=== PATIENT | male | born 1945 | race Caucasian/White ===

== ENCOUNTER 2017-08-28 10:18 | Inpatient (IN) ==
[2017-08-28 11:36] LABS: Basophils # 0.1 K/mcL (0.0-0.2); Basophils % 0.9 %; Eosinophils # 0.1 K/mcL (0.0-0.6); Eosinophils % 1.2 %; Hematocrit 46.6 % (37.5-50.1); Hemoglobin 15.9 g/dL (12.9-16.9); Immature Granulocytes % 0.7 % (0-4); Lymphocytes % 10.1 %; Mean Corpuscular HGB Conc 34.1 g/dL (31.6-35.5); Mean Corpuscular Hemoglobin 31.9 pg (28.0-33.3); Mean Corpuscular Volume 93.4 fL (83.0-100.0); Mean Platelet Volume 8.7 fL (9.4-12.4); Monocytes # 0.9 K/mcL (0.0-1.3); Neutrophils # 7.6 K/mcL (1.6-8.9); Platelet Count 278 K/mcL (140-400); Red Blood Count 4.99 M/mcL (4.19-5.50); Red Cell Distribution Width 13.2 % (11.5-14.5); Segmented Neutrophils % 78.1 %
[2017-08-28 11:58] LABS: Platelet Estimate Normal (Normal)
[2017-08-28 11:59] LABS: BUN/Creatinine Ratio 9 (6-26); Blood Urea Nitrogen 12 mg/dL (8-23); Calcium 9.7 mg/dL (8.6-10.3); Carbon Dioxide 26 mEq/L (23-29); Chloride 101 mEq/L (98-107); Glucose 170 mg/dL (70-105); Osmolality,Calculated 288 (280-300); Potassium 4.3 mEq/L (3.5-5.1); Sodium 137 mEq/L (136-145); eGFR For African Americans > 60 (> 60); eGFR For Non-African Americans 56 (> 60)
[2017-08-28] MEDS ORDERED: 0.9 % Sodium Chloride 1,000 ML IVC ONE (12:40)
[2017-08-28] MEDS ORDERED: Isovue-370 500 ML INFUS..BTL IV ONE (12:40)
[2017-08-28] MEDS ORDERED: methylPREDNISolone 125 MG/2 ML VIAL IVP ONE (13:00)
[2017-08-28] MEDS ORDERED: Ipratropium/Albuterol Neb 3 ML IH ONE (13:00)
--- NOTE | 2017-08-28 13:05 | Emergency Department Note ---
Disposition Clinical Impression: Acute exacerbation of chronic obstructive airways disease Disposition: Admitted As Inpatient Condition: Good Referrals: NONE,PCP [Primary Care Provider] - Forms: ED Satisfaction Letter Time of Disposition: 15:22 General Adult HPI - General Chief complaint: ED Shortness of Breath/Dyspnea Stated complaint: LYNN/Cough/Low O2 Time Seen by Provider: 08/28/17 12:39 Source: patient, family Limitations: no limitations Nursing Notes Reviewed: Yes Vital Signs Reviewed: Yes - History of Present Illness HPI Narrative: 71 year old male presents to the Ed with complants of LYNN and hypoxia with diffiuclty in taking a deep breath. Shinnet states that he has been battling with a sinus and bronchitis problem for the past one week and states that he is feeling more weak today due to it. Stats that this feel very similar to his episode of pnueoina that he had a few years ago and was told that he hasa problem with his diaphragm on the right side. Shinnet states that he has had green and yellow sputum production out of his nose and cough, with chills and rigors at home but and a tmax of 99. Myrtle at rest is at 92% in the room and appears to have a bronchitis cough. Denies chest pain or abdominal pain or nausea or vomitting. Pain Scale: 0 - Related Data Home Medications Medication Instructions Recorded Confirmed Atorvastatin 08/28/17 Synthroid 08/28/17 Allergies Allergy/AdvReac Type Severity Reaction Status Date / Time No Known Allergies Allergy Verified 08/28/17 10:24 Constitutional: Reports: fever, chills, weakness. Denies: weight change Eyes: Denies: eye pain, eye discharge, vision change ENT ED: Denies: ear pain, throat pain, dental pain, hearing loss, epistaxis, congestion, dysphagia Cardiovascular: Denies: chest pain, palpitations, dyspnea on exertion, edema, syncope Respiratory: Reports: cough, dyspnea, wheezes. Denies: hemoptysis, stridor Gastrointestinal: Denies: abdominal pain, nausea, vomiting, diarrhea, constipation, hematemesis, melena, hematochezia Genitourinary: Denies: urgency, dysuria, frequency, hematuria Musculoskeletal: Denies: back pain, neck pain, arthralgia, myalgia Integumentary: Denies: rash, abrasion, lesions Neurological: Denies: headache, weakness, numbness, paresthesias, confusion, abnormal gait, vertigo Psychiatric: Denies: anxiety, depression, suicidal thoughts, homicidal thoughts , auditory hallucinations, visual hallucinations Endocrine: Denies: fatigue Hematological/Lymphatic: Denies: easy bleeding, easy bruising Allergic/Immunologic: Denies: facial swelling, urticaria Past Medical History - Past Medical History Medical history: Reports: COPD, hyperlipidemia Psychiatric history: Reports: no psych history - Social History Smoking Status: Never smoker Smokeless Tobacco Status: No Alcohol use: Reports: none Drug use: Reports: none Physical Exam - General Limitations: no limitations General appearance: alert - Head Head exam: atraumatic, normocephalic, normal inspection - Eye Eye exam: Present: normal appearance, PERRL, EOMI - Expanded Eye Exam Pupils: Bilateral: reactive - ENT ENT exam: normal exam, normal oropharynx, mucous membranes moist - Expanded ENT Exam External ear exam: Present: normal external inspection Mouth exam: Present: normal external inspection Teeth exam: Present: normal inspection Throat exam: Present: normal inspection - Neck Neck exam: Present: normal inspection, full ROM, trachea midline - Chest Chest inspection: Present: normal inspection, symmetric chest wall rise - Respiratory Respiratory exam: Present: wheezes. Absent: respiratory distress, accessory muscle use, prolonged expiratory phase - Cardiovascular Cardiovascular exam: Present: regular rate, normal rhythm, normal heart sounds - Abdominal Exam Abdominal exam: Present: soft, Non-Tender. Absent: tenderness, distention, guarding, rebound, rigidity - Extremities Exam Extremities exam: Present: normal inspection, full ROM. Absent: tenderness, pedal edema - Expanded Upper Extremity Exam Shoulder exam: Present: normal inspection, full ROM Arm exam: Present: normal inspection, full ROM Elbow exam: Present: normal inspection, full ROM Forearm/Wrist exam: Present: normal inspection, full ROM Hand exam: Present: normal inspection, full ROM Vascular exam: Normal: capillary refill, radial pulse - Expanded Lower Extremity Exam Hip/Pelvis exam: Present: normal inspection, full ROM Upper leg exam: Present: normal inspection, full ROM Knee exam: Present: normal inspection, full ROM Lower leg exam: Present: normal inspection, full ROM Ankle exam: Present: normal inspection, full ROM Foot/toe exam: Present: normal inspection, full ROM Neurovascular/Tendon exam: Absent: motor deficit, sensory deficit, tendon deficit - Back Exam Back exam: Present: normal inspection, full ROM. Absent: tenderness - Neurological Exam Neurological exam: Present: alert, oriented X3 - Expanded Neurological Exam Patient oriented to: Present: person, place, time Coma Scale Eye Opening: Spontaneous Coma Scale Motor Response: Obeys Commands Coma Scale Verbal Response: Oriented Coma Scale Total: 15 - Psychiatric Psychiatric exam: Present: normal affect, normal mood - Skin Skin exam: Present: warm, dry, intact, normal color Course Course Narrative: we will do cardiopulonary workup in clduing a CTA chest to domingo out pnuemonia or PE. PAtinet will have breathing treatments and steroid therapy and pulmonary toilet for relief and then will re-evlauate. - Reevaluation(s) Reevaluation #1: updated patient on reults. At rest he is still 92-94%, we will ambulate and assess his oxygenation status. IF he is below 90% than [facility], [facility]. Time: 15:12 Reevaluation #2: debbie did not tolerate wlak test well, and decompenstated to 89%. We sonya admit to medicine. Time: 15:22 - Consultations Consultation #1: dsicussed case with dr. Perez and he accepts patient to his service Time: 15:49 Vital Signs Temperature 98.4 F 08/28/17 10:23 Pulse Rate 88 08/28/17 10:23 Respiratory Rate 20 08/28/17 10:23 Blood Pressure 116/73 08/28/17 10:23 O2 Sat by Pulse Oximetry 93 08/28/17 10:23 Temperature 98.4 F 08/28/17 12:33 Pulse Rate 81 08/28/17 15:34 Respiratory Rate 18 08/28/17 15:34 Blood Pressure 125/71 08/28/17 15:34 O2 Sat by Pulse Oximetry 91 08/28/17 15:34 Oxygen Delivery Oxygen Delivery Nasal Cannula Medical Decision Making - Lab Data Result diagrams: 08/28/17 11:14 08/28/17 11:14 Lab Results 08/28/17 08/28/17 08/28/17 Range/Units 11:14 11:14 11:14 WBC 9.7 (4.3-11.1) K/mcL RBC 4.99 (4.19-5.50) M/mcL Hgb 15.9 (12.9-16.9) g/dL Hct 46.6 (37.5-50.1) % MCV 93.4 (83.0-100.0) fL MCH 31.9 (28.0-33.3) pg MCHC 34.1 (31.6-35.5) g/dL RDW 13.2 (11.5-14.5) % Plt Count 278 (140-400) K/mcL MPV 8.7 L (9.4-12.4) fL Immature Gran % 0.7 (0-4) % Seg Neutrophils % 78.1 % Lymphocytes % 10.1 % Monocytes % 9.0 % Eosinophils % 1.2 % Basophils % 0.9 % Neutrophils # 7.6 (1.6-8.9) K/mcL Lymphocytes # 1.0 (0.6-4.6) K/mcL Monocytes # 0.9 (0.0-1.3) K/mcL Eosinophils # 0.1 (0.0-0.6) K/mcL Basophils # 0.1 (0.0-0.2) K/mcL Platelet Estimate Normal (Normal) PT (9.4-12.1) Seconds INR APTT (26.0-36.0) Seconds Sodium 137 (136-145) mEq/L Potassium 4.3 (3.5-5.1) mEq/L Chloride 101 (98-107) mEq/L Carbon Dioxide 26 (23-29) mEq/L BUN 12 (8-23) mg/dL Creatinine 1.28 (0.70-1.30) mg/dL Est GFR ( Amer) > 60 (> 60) Est GFR (Non-Af Amer) 56 L (> 60) BUN/Creatinine Ratio 9 (6-26) Glucose 170 H (70-105) mg/dL Calculated Osmolality 288 (280-300) Lactic Acid 1.9 (0.5-2.2) mmol/L Calcium 9.7 (8.6-10.3) mg/dL Phosphorus (2.7-4.5) mg/dL Magnesium (1.6-2.6) mg/dL Total Bilirubin (0.3-1.0) mg/dL Direct Bilirubin (0.0-0.2) mg/dL Indirect Bilirubin (0.0-1.2) mg/dL AST (13-39) Units/L ALT (7-52) Units/L Alkaline Phosphatase (34-104) Units/L Troponin I (< 0.04) ng/mL B-Natriuretic Peptide (Less than 100) pg/mL Serum Total Protein (6.4-8.9) g/dL Albumin (3.5-5.7) g/dL Globulin (2.4-3.5) g/dL Albumin/Globulin Ratio (1.1-2.2) Lipase (11-82) Units/L 08/28/17 08/28/17 08/28/17 Range/Units 11:14 13:04 13:04 WBC (4.3-11.1) K/mcL RBC (4.19-5.50) M/mcL Hgb (12.9-16.9) g/dL Hct (37.5-50.1) % MCV (83.0-100.0) fL MCH (28.0-33.3) pg MCHC (31.6-35.5) g/dL RDW (11.5-14.5) % Plt Count (140-400) K/mcL MPV (9.4-12.4) fL Immature Gran % (0-4) % Seg Neutrophils % % Lymphocytes % % Monocytes % % Eosinophils % % Basophils % % Neutrophils # (1.6-8.9) K/mcL Lymphocytes # (0.6-4.6) K/mcL Monocytes # (0.0-1.3) K/mcL Eosinophils # (0.0-0.6) K/mcL Basophils # (0.0-0.2) K/mcL Platelet Estimate (Normal) PT 12.7 H (9.4-12.1) Seconds INR 1.2 APTT 42.8 H (26.0-36.0) Seconds Sodium (136-145) mEq/L Potassium (3.5-5.1) mEq/L Chloride (98-107) mEq/L Carbon Dioxide (23-29) mEq/L BUN (8-23) mg/dL Creatinine (0.70-1.30) mg/dL Est GFR ( Amer) (> 60) Est GFR (Non-Af Amer) (> 60) BUN/Creatinine Ratio (6-26) Glucose (70-105) mg/dL Calculated Osmolality (280-300) Lactic Acid (0.5-2.2) mmol/L Calcium (8.6-10.3) mg/dL Phosphorus 1.8 L (2.7-4.5) mg/dL Magnesium 2.1 (1.6-2.6) mg/dL Total Bilirubin 0.6 (0.3-1.0) mg/dL Direct Bilirubin 0.1 (0.0-0.2) mg/dL Indirect Bilirubin 0.5 (0.0-1.2) mg/dL AST 16 (13-39) Units/L ALT 15 (7-52) Units/L Alkaline Phosphatase 67 (34-104) Units/L Troponin I < 0.03 (< 0.04) ng/mL B-Natriuretic Peptide 26 (Less than 100) pg/mL Serum Total Protein 7.7 (6.4-8.9) g/dL Albumin 4.4 (3.5-5.7) g/dL Globulin 3.3 (2.4-3.5) g/dL Albumin/Globulin Ratio 1.3 (1.1-2.2) Lipase 33 (11-82) Units/L
[2017-08-28 13:25] LABS: INR 1.2; Prothrombin Time 12.7 Seconds (9.4-12.1)
[2017-08-28 13:28] LABS: Activated Partial Thrombo Time 42.8 Seconds (26.0-36.0)
[2017-08-28 13:48] LABS: Alanine Aminotransferase 15 Units/L (7-52); Albumin 4.4 g/dL (3.5-5.7); Albumin/Globulin Ratio 1.3 (1.1-2.2); Alkaline Phosphatase 67 Units/L (34-104); Aspartate Amino Transferase 16 Units/L (13-39); Bilirubin,Direct 0.1 mg/dL (0.0-0.2); Bilirubin,Indirect 0.5 mg/dL (0.0-1.2); Bilirubin,Total 0.6 mg/dL (0.3-1.0); Globulin 3.3 g/dL (2.4-3.5); Lipase 33 Units/L (11-82); Magnesium 2.1 mg/dL (1.6-2.6); Phosphorous 1.8 mg/dL (2.7-4.5); Total Protein 7.7 g/dL (6.4-8.9)
[2017-08-28 14:44] LABS: Troponin I < 0.03 ng/mL (< 0.04)
[2017-08-28] MEDS ORDERED: Levofloxacin 750 MG/150 ML 750 MG/150 ML BAG IVPB ONE (15:49)
[2017-08-28 17:03] LABS: Bilirubin,Urine Negative (Negative); Blood,Urine Negative (Negative); Clarity,Urine Clear (Clear); Color,Urine Yellow (Yellow); Glucose,Urine (UA) Normal (Normal); Ketones,Urine 15 mg/dL (Negative); Leukocyte Esterase,Urine Negative (Negative); Nitrite,Urine Negative (Negative); Protein,Urine Negative (Neg-Trace); Specific Gravity,Urine > 1.030 (1.010-1.025); Urobilinogen,Urine Normal (Normal)
[2017-08-28] MEDS ORDERED: D5% in Water 1,000 ML IVC PRN (17:14)
[2017-08-28] MEDS ORDERED: *HR* HYDROcodone/Acet 5/325 mg TABLET PO PRN (17:14)
[2017-08-28] MEDS ORDERED: *HR* OxyCODONE Immed Rel 5 MG TABLET PO PRN (17:14)
[2017-08-28] MEDS ORDERED: Naloxone 0.4 MG/ML INJ IVP PRN (17:14)
[2017-08-28] MEDS ORDERED: Acetaminophen 325 MG TABLET PO PRN (17:14)
[2017-08-28] MEDS ORDERED: *HR* Dextrose 50 % in Water (Syg) 50 ML SYRINGE IVP PRN (17:14)
[2017-08-28] MEDS ORDERED: Dextrose Gel 15 GM/37.5 ML TUBE PO PRN ×2 (17:14)
--- NOTE | 2017-08-28 17:20 | Internal Med History&Physical ---
Date of Encounter: 08/28/17 Time of Encounter: 17:18 Internal Medicine - H&P: HPI Chief complaint: Shortness of breath Admitted From: Emergency Dept History of present illness: Mr. Tapia is a 71 year old male with a past medical history of right diaphragmatic paralysis/right lung atelectasis, hypothyroidism, COPD not oxygen dependent, who came to emergency room complaining of one week of difficulty breathing that started with a yellowish phlegm, heat to 4 days of antibiotics and did not feel any better, 10 days ago he had a sore throat and temperature of 99. He has been progressively feeling weaker. Today he had a CT angiography chest that showed no pulmonary emboli but showed a right lower lobe atelectasis with an elevated right-sided diaphragm as known before. Desaturated down to 89%, his glucose was 117 he does not have any history of diabetes. Received Solu-Medrol and Levaquin at the emergency room. Still complaining of shortness of breath, denies any chest pain. No sick contacts Past Med Surg Social Fam HX - Past Medical History Medical history: COPD (Not oxygen dependent), hyperlipidemia, other (Abnormal right diaphragmatic elevation, possibly paralysis, hypothyroidism, hyperlipidemia) Psychiatric history: no psych history - Past Surgical History Surgical History: no surgical history - Social History Smoking Status: Former smoker Packs per day: Quit smoking 10 years ago used to smoke 1 pack per day Smokeless Tobacco Status: No Alcohol use: none Drug use: none - Additional Family History Additional family history: Father with prostate cancer and gastric cancer, mother with breast cancer Internal Medicine - H&P: Meds Atorvastatin Calcium [Lipitor] 20 mg PO DAILY 08/28/17 [History] Azelastine 0.1% Nasal [place] [Astelin] 1 spr NS DAILY 08/28/17 [History] Levothyroxine [Synthroid] 125 mcg PO DAILY 08/28/17 [History] 3 Allergy/AdvReac Type Severity Reaction Status Date / Time No Known Allergies Allergy Verified 08/28/17 10:24 All Systems PM: A 10-system review of systems was performed and is negative for pertinent findings except as documented above in the HPI. Review of systems: Feels weak, no diarrhea or dysuria, other systems out of the 10 reviewed were negative - Constitutional Vitals: Temp Pulse Resp BP Pulse Ox 98.4 F 81 18 122/81 91 08/28/17 12:33 08/28/17 15:34 08/28/17 17:03 08/28/17 17:03 08/28/17 15:34 General appearance: Present: A&O X 3 - Head Head exam: Present: atraumatic, normocephalic - Eye Eye exam: Present: PERRL, conjuntiva pink, sclera anicteric Pupils: Present: PERRL - Neck Neck exam general surgery: Present: supple, trachea midline. Absent: lymphadenopathy - Respiratory Respiratory exam: Present: CTAB, wheezes. Absent: accessory muscle use, rales, rhonchi Additional comments: Blunted breath sounds on the right base, diffuse wheezing bilaterally - Cardiovascular Cardiovascular exam: Present: RRR, +S1, +S2. Absent: diastolic murmur, gallop, rubs, systolic murmur - GI/Abdominal GI/Abdominal exam: Present: normal bowel sounds, soft, no peritoneal signs. Absent: distended, tenderness - Extremities Exam Extremities exam: Present: warm, radial pulses palpable and symmetrical. Absent : calf tenderness, cyanotic, pedal edema - Neurological Exam Neurological exam: Present: CN II-XII intact, oriented X3, no focal deficits. Absent: pronater drift, facial droop, speech deficit - Skin Skin exam: Present: dry, intact Internal Med - H&P Results - Labs CBC & Chem 7: 08/28/17 11:14 08/28/17 11:14 Labs: Urine 08/28/17 Range/Units 16:43 Urine Color Yellow (Yellow) Urine Clarity Clear (Clear) Urine pH 6.0 (5.0-8.0) pH Units Ur Specific [place] > 1.030 H (1.010-1.025) Urine Protein Negative (Neg-Trace) mg/dL Urine Glucose (UA) Normal (Normal) mg/dL - Assessment and plan (1) Acute respiratory failure with hypoxia Current Visit: Yes Status: Acute Assessment and plan: Acute hypoxic respiratory failure secondary to acute COPD exacerbation due to acute bacterial bronchitis Start Rocephin and continue Solu-Medrol Duo nebs, oxygen therapy Needs pulmonary function tests in 6 weeks as outpatient Omeprazole for GI prophylaxis and subcutaneous tenderness heparin for DVT prophylaxis. The patient will be admitted for observation, full code. Time spent on this admission 40 minutes (2) Quit using tobacco in remote past Current Visit: Yes Status: Acute (3) Hyperglycemia Current Visit: Yes Status: Acute Assessment and plan: Insulin sliding scale Order hemoglobin A1c in the morning (4) Hypothyroidism Current Visit: Yes Status: Acute Assessment and plan: Continue Synthroid Qualifiers: Hypothyroidism type: unspecified Qualified Code(s): E03.9 - Hypothyroidism , unspecified (5) Acute exacerbation of chronic obstructive airways disease Current Visit: Yes Status: Acute - Time Spent With Patient Total time spent is greater than 50% in coordination of care (as documented) at patient's floor/unit and/or counseling patient:
[2017-08-28] MEDS: Ipratropium/Albuterol Neb 3 ML IH SCH ×2 (18:15→22:45)
[2017-08-28] MEDS: MethylPREDNISolone 40 MG/ML VIAL IVP SCH ×2 (19:42→23:01)
[2017-08-28] MEDS: *HR* Heparin 5,000 UNIT/ML VIAL SQ SCH (21:20)
[2017-08-29] MEDS: Ipratropium/Albuterol Neb 3 ML IH SCH ×4 (04:14→21:50)
[2017-08-29] MEDS: *HR* Heparin 5,000 UNIT/ML VIAL SQ SCH ×3 (05:35→22:20)
[2017-08-29 05:47] LABS: Hematocrit 41.1 % (37.5-50.1); Hemoglobin 13.8 g/dL (12.9-16.9); Mean Corpuscular HGB Conc 33.6 g/dL (31.6-35.5); Mean Corpuscular Hemoglobin 30.5 pg (28.0-33.3); Mean Corpuscular Volume 90.9 fL (83.0-100.0); Mean Platelet Volume 8.7 fL (9.4-12.4); Platelet Count 258 K/mcL (140-400); Red Blood Count 4.52 M/mcL (4.19-5.50); Red Cell Distribution Width 12.9 % (11.5-14.5)
[2017-08-29 05:58] LABS: BUN/Creatinine Ratio 16 (6-26); Blood Urea Nitrogen 19 mg/dL (8-23); Carbon Dioxide 21 mEq/L (23-29); Chloride 102 mEq/L (98-107); Glucose 203 mg/dL (70-105); Osmolality,Calculated 284 (280-300); Potassium 3.9 mEq/L (3.5-5.1); Sodium 133 mEq/L (136-145); eGFR For African Americans > 60 (> 60); eGFR For Non-African Americans > 60 (> 60)
[2017-08-29 08:04] LABS: Estimated Average Glucose 137 mg/dl; Hemoglobin A1C 6.4 %
[2017-08-29] MEDS: MethylPREDNISolone 40 MG/ML VIAL IVP SCH ×3 (10:10→22:20)
[2017-08-29] MEDS: cefTRIAXone 1,000 MG in Water for inj. (sterile) 20 ML 10 ML IVP SCH (10:10)
[2017-08-29] MEDS: Insulin LISPRO 300 UNITS/3 ML VIAL SQ SCH ×3 (10:22→17:00)
--- NOTE | 2017-08-29 11:10 | Electrocardiograph Report ---
[facility] Test Date: 2017-08-28 Pat Name: Colt Tapia Department: 104 Room: 3B37 Gender: M Youth Care Specialist: : 1945 Requested By: Garry Paz Order Number: [id number] Reading MD: Oneal Fonseca Measurements Intervals [place] Rate: 81 P: 40 CA: 163 QRS: -39 QRSD: 98 T: 16 QT: 347 QTc: 384 Interpretive Statements SINUS RHYTHM MARKED LEFT AXIS DEVIATION PATTERN CONSISTENT WITH PULMONARY DISEASE Electronically Signed On 08-29-2017 11:09:10 EDT by Oneal Fonseca
--- NOTE | 2017-08-29 15:02 | Internal Med Progress Note ---
Date of Encounter: 08/29/17 Time of Encounter: 15:07 - Assessment and plan (1) Acute exacerbation of chronic obstructive airways disease Current Visit: Yes Status: Acute Assessment and plan: presented with SOB, fever and cough. Chest CTA with RLL atelectasis and chronic elevation of right hemidiaphragm. Suspect COPD exacerbation with wheezing on exam. Cont IV steroids, azithromycin/ceftriaxone, bronchodilators. Rested for a PCR pending. (2) Acute respiratory failure with hypoxia Current Visit: Yes Status: Acute Assessment and plan: Acute hypoxic respiratory failure secondary to acute COPD exacerbation due to acute bacterial bronchitis. Chest CTA negative for pulmonary embolism. Cont treating COPD/bronchitis as noted above. Will need pulmonary function tests in 6 weeks as outpatient. Wean supplemental O2 as able (3) Hyperglycemia Current Visit: Yes Status: Acute Assessment and plan: Hgb A1c 6.4%. Suspect secondary to steroids. Cont SSI (4) Hypothyroidism Current Visit: Yes Status: Acute Assessment and plan: per hx. Continue Synthroid Qualifiers: Hypothyroidism type: unspecified Qualified Code(s): E03.9 - Hypothyroidism , unspecified (5) DVT prophylaxis Current Visit: Yes Status: Acute Assessment and plan: heparin - Time Spent With Patient Total time spent is greater than 50% in coordination of care (as documented) at patient's floor/unit and/or counseling patient: - Subjective Interval history: Seen and examined at bedside. Patient is new to me, information obtained from chart review and patient report. Still having some shortness of breath and nonproductive cough but overall significantly improved. Still requiring supplemental O2. No fevers or chills. No chest pain. - Constitutional Vitals: Temp Pulse Resp BP Pulse Ox 97.9 F 80 16 118/67 92 08/29/17 10:57 08/29/17 10:57 08/29/17 10:57 08/29/17 10:57 08/29/17 10:57 General appearance: Present: A&O X 3, pleasant, no acute distress - Head Head exam: Present: atraumatic, normocephalic - Eye Eye exam: Present: PERRL, conjuntiva pink, sclera anicteric Pupils: Present: PERRL - Neck Neck exam general surgery: Present: supple, trachea midline. Absent: lymphadenopathy - Respiratory Respiratory exam: Present: CTAB, wheezes. Absent: accessory muscle use, rales, rhonchi - Cardiovascular Cardiovascular exam: Present: RRR, +S1, +S2. Absent: diastolic murmur, gallop, rubs, systolic murmur - GI/Abdominal GI/Abdominal exam: Present: normal bowel sounds, soft, no peritoneal signs. Absent: distended, tenderness - Extremities Exam Extremities exam: Present: warm, radial pulses palpable and symmetrical. Absent : calf tenderness, cyanotic, pedal edema - Neurological Exam Neurological exam: Present: CN II-XII intact, oriented X3, no focal deficits. Absent: pronater drift, facial droop, speech deficit - Skin Skin exam: Present: dry, intact Internal Medicine: Result - Labs CBC & Chem 7: 08/29/17 05:12 08/29/17 05:12 Labs: Short CBC 08/29/17 Range/Units 05:12 WBC 10.4 (4.3-11.1) K/mcL Hgb 13.8 D (12.9-16.9) g/dL Hct 41.1 (37.5-50.1) % Plt Count 258 (140-400) K/mcL BMP 08/29/17 05:12 Sodium 133 L Potassium 3.9 Chloride 102 Carbon Dioxide 21 L BUN 19 Creatinine 1.20 Glucose 203 H Calcium 9.0 Urine 08/28/17 Range/Units 16:43 Urine Color Yellow (Yellow) Urine Clarity Clear (Clear) Urine pH 6.0 (5.0-8.0) pH Units Ur Specific [place] > 1.030 H (1.010-1.025) Urine Protein Negative (Neg-Trace) mg/dL Urine Glucose (UA) Normal (Normal) mg/dL - ABG Interpretation ABG results: PT/INR, D-dimer PT 12.7 Seconds (9.4-12.1) H 08/28/17 13:04 Consult Discharge Plan - Plan Referrals: NONE,PCP [Primary Care Provider] -
[2017-08-29] MEDS: Azithromycin 500 MG in D5% in Water 250 ML IVPB SCH (16:58)
[2017-08-30] MEDS: Ipratropium/Albuterol Neb 3 ML IH SCH ×4 (04:15→21:47)
[2017-08-30] MEDS: *HR* Heparin 5,000 UNIT/ML VIAL SQ SCH ×3 (05:23→21:24)
[2017-08-30] MEDS: Insulin LISPRO 300 UNITS/3 ML VIAL SQ SCH ×3 (09:05→17:13)
[2017-08-30] MEDS: cefTRIAXone 1,000 MG in Water for inj. (sterile) 20 ML 10 ML IVP SCH (09:06)
[2017-08-30] MEDS: MethylPREDNISolone 40 MG/ML VIAL IVP SCH ×2 (09:08→17:07)
--- NOTE | 2017-08-30 10:23 | Internal Med Progress Note ---
Date of Encounter: 08/30/17 Time of Encounter: 10:20 - Assessment and plan (1) Acute exacerbation of chronic obstructive airways disease Current Visit: Yes Status: Acute Assessment and plan: presented with SOB, fever and cough. Chest CTA with RLL atelectasis and chronic elevation of right hemidiaphragm. Suspect COPD exacerbation with wheezing and cough. Cont IV steroids, azithromycin/ceftriaxone, bronchodilators. Resp PCR, urinary antigens pending. Check echo to assess for diastolic dysfunction with persistent symptoms. (2) Acute respiratory failure with hypoxia Current Visit: Yes Status: Acute Assessment and plan: Acute hypoxic respiratory failure secondary to acute COPD exacerbation due to acute bacterial bronchitis. Chest CTA negative for pulmonary embolism. Cont treating COPD/bronchitis as noted above. Will need pulmonary function tests in 6 weeks as outpatient. Wean supplemental O2 as able (3) Hyperglycemia Current Visit: Yes Status: Acute Assessment and plan: Hgb A1c 6.4%. Suspect secondary to steroids. Cont SSI (4) Hypothyroidism Current Visit: Yes Status: Acute Assessment and plan: per hx. Continue Synthroid Qualifiers: Hypothyroidism type: unspecified Qualified Code(s): E03.9 - Hypothyroidism , unspecified (5) DVT prophylaxis Current Visit: Yes Status: Acute Assessment and plan: heparin - Time Spent With Patient Total time spent is greater than 50% in coordination of care (as documented) at patient's floor/unit and/or counseling patient: - Subjective Interval history: Seen and examined at bedside. Says he feels worse today. Still short of breath and having coughing episodes. Did not sleep well. No chest pain - Constitutional Vitals: Temp Pulse Resp BP Pulse Ox 97.3 F L 77 16 117/67 94 08/30/17 07:56 08/30/17 07:56 08/30/17 07:56 08/30/17 07:56 08/30/17 07:56 General appearance: Present: A&O X 3, pleasant, no acute distress - Head Head exam: Present: atraumatic, normocephalic - Eye Eye exam: Present: PERRL, conjuntiva pink, sclera anicteric Pupils: Present: PERRL - Neck Neck exam general surgery: Present: supple, trachea midline. Absent: lymphadenopathy - Respiratory Respiratory exam: Present: rhonchi, wheezes. Absent: accessory muscle use, rales - Cardiovascular Cardiovascular exam: Present: RRR, +S1, +S2. Absent: diastolic murmur, gallop, rubs, systolic murmur - GI/Abdominal GI/Abdominal exam: Present: normal bowel sounds, soft, no peritoneal signs. Absent: distended, tenderness - Extremities Exam Extremities exam: Present: warm, radial pulses palpable and symmetrical. Absent : calf tenderness, cyanotic, pedal edema - Neurological Exam Neurological exam: Present: CN II-XII intact, oriented X3, no focal deficits. Absent: pronater drift, facial droop, speech deficit - Skin Skin exam: Present: dry, intact Internal Medicine: Result - Labs CBC & Chem 7: 08/29/17 05:12 08/29/17 05:12 - ABG Interpretation ABG results: PT/INR, D-dimer PT 12.7 Seconds (9.4-12.1) H 08/28/17 13:04 Consult Discharge Plan - Plan Referrals: Dylan Milligan MD [Partnered Physician] -
[2017-08-30 11:25] LABS: Adenovirus Not Detected (Not Detect); Bordetella Pertussis Not Detected (Not Detect); Chlamydophila pneumoniae Not Detected (Not Detect); Coronavirus 229E Not Detected (Not Detect); Coronavirus HKU1 Not Detected (Not Detect); Coronavirus NL63 Not Detected (Not Detect); Coronavirus OC43 Not Detected (Not Detect); Human Metapneumovirus Not Detected (Not Detect); Human Rhinovirus/Enterovirus Not Detected (Not Detect); Influenza A Subtype 2009 H1 Not Detected (Not Detect); Influenza A Untypeable Not Detected (Not Detect); Influenza B Not Detected (Not Detect); Mycoplasma pneumoniae Not Detected (Not Detect); Parainfluenza Virus 1 Not Detected (Not Detect); Parainfluenza Virus 2 Not Detected (Not Detect); Parainfluenza Virus 3 Not Detected (Not Detect); Parainfluenza Virus 4 Not Detected (Not Detect); Respiratory Syncytial Virus Not Detected (Not Detect)
[2017-08-30] MEDS: Benzonatate 100 MG CAPSULE PO PRN (11:35)
[2017-08-30] MEDS: Azithromycin 500 MG in D5% in Water 250 ML IVPB SCH (17:06)
[2017-08-31] MEDS: MethylPREDNISolone 40 MG/ML VIAL IVP SCH ×3 (00:40→15:21)
[2017-08-31] MEDS: Benzonatate 100 MG CAPSULE PO PRN ×2 (00:47→08:34)
[2017-08-31] MEDS: Ipratropium/Albuterol Neb 3 ML IH SCH ×6 (03:47→23:33)
[2017-08-31] MEDS: *HR* Heparin 5,000 UNIT/ML VIAL SQ SCH ×3 (06:04→19:45)
[2017-08-31 07:11] LABS: BUN/Creatinine Ratio 24 (6-26); Blood Urea Nitrogen 25 mg/dL (8-23); Calcium 8.6 mg/dL (8.6-10.3); Carbon Dioxide 25 mEq/L (23-29); Chloride 105 mEq/L (98-107); Glucose 164 mg/dL (70-105); Osmolality,Calculated 292 (280-300); Potassium 4.8 mEq/L (3.5-5.1); Sodium 137 mEq/L (136-145); eGFR For African Americans > 60 (> 60); eGFR For Non-African Americans > 60 (> 60)
[2017-08-31 07:50] LABS: Hematocrit 38.3 % (37.5-50.1); Hemoglobin 13.1 g/dL (12.9-16.9); Mean Corpuscular HGB Conc 34.2 g/dL (31.6-35.5); Mean Corpuscular Hemoglobin 31.5 pg (28.0-33.3); Mean Corpuscular Volume 92.1 fL (83.0-100.0); Mean Platelet Volume 9.2 fL (9.4-12.4); Platelet Count 288 K/mcL (140-400); Red Blood Count 4.16 M/mcL (4.19-5.50); Red Cell Distribution Width 13.1 % (11.5-14.5)
[2017-08-31] MEDS: Insulin LISPRO 300 UNITS/3 ML VIAL SQ SCH ×3 (08:23→16:37)
[2017-08-31] MEDS: cefTRIAXone 1,000 MG in Water for inj. (sterile) 20 ML 10 ML IVP SCH (08:31)
--- NOTE | 2017-08-31 13:37 | Pulmonology Progress Note ---
Date of Encounter: 08/31/17 Time of Encounter: 13:00 Objective PUL Vital signs: Last Vital Signs Temp 97.5 F L 08/31/17 10:36 Pulse 71 08/31/17 10:36 Resp 20 08/31/17 11:18 BP 131/77 08/31/17 10:36 Pulse Ox 91 08/31/17 11:18 Results - Laboratory Findings CBC and BMP: 08/31/17 05:54 08/31/17 05:54 PT/INR, D-dimer PT 12.7 Seconds (9.4-12.1) H 08/28/17 13:04 Abnormal lab findings: Abnormal lab results WBC 14.6 K/mcL (4.3-11.1) H 08/31/17 05:54 RBC 4.16 M/mcL (4.19-5.50) L 08/31/17 05:54 MPV 9.2 fL (9.4-12.4) L 08/31/17 05:54 PT 12.7 Seconds (9.4-12.1) H 08/28/17 13:04 APTT 42.8 Seconds (26.0-36.0) H 08/28/17 13:04 BUN 25 mg/dL (8-23) H 08/31/17 05:54 Glucose 164 mg/dL (70-105) H 08/31/17 05:54 POC Glucose 159 mg/dL (70-99) H 08/30/17 20:39 Hemoglobin A1c 6.4 % (-5.6) H 08/29/17 05:12 Phosphorus 1.8 mg/dL (2.7-4.5) L 08/28/17 13:04 Ur Specific [place] > 1.030 (1.010-1.025) H 08/28/17 16:43 Urine Ketones 15 mg/dL (Negative) H 08/28/17 16:43 - Microbiology Findings Microbiology Findings: Microbiology, Last 48 Hours 08/30/17 15:49 Legionella Antigen - Final Urine,Clean Catch Streptococcus pneumoniae Antigen (M - Final - Clinical Findings Intake & Output: Intake & Output 08/30/17 08/31/17 08/31/17 23:59 07:59 15:59 Intake Total 240 / 240 240 / 240 Balance 240 / 240 240 / 240 Weight 102.3 kg Consult Discharge Plan - Plan Referrals: Beam,Dylan W, MD [Partnered Physician] -
[2017-08-31] MEDS: Azithromycin 500 MG in D5% in Water 250 ML IVPB SCH (15:21)
--- NOTE | 2017-08-31 15:33 | Internal Med Progress Note ---
Date of Encounter: 08/31/17 Time of Encounter: 15:32 - Assessment and plan (1) Acute diastolic (congestive) heart failure Current Visit: Yes Status: Acute Assessment and plan: suspected. Dramatic with persistent shortness of breath and cough. TTE with EF 60%, moderate diastolic dysfunction and left atrial enlargement. Evaluated by pulmonology who recommended IV Lasix. Give one-time dose now and reassess. (2) Acute exacerbation of chronic obstructive airways disease Current Visit: Yes Status: Acute Assessment and plan: presented with SOB, fever and cough. Chest CTA with RLL atelectasis and chronic elevation of right hemidiaphragm. Suspect COPD exacerbation with wheezing and cough. Cont IV steroids, azithromycin/ceftriaxone, bronchodilators. Resp PCR, urinary antigens pending. Check echo to assess for diastolic dysfunction with persistent symptoms. (3) Acute respiratory failure with hypoxia Current Visit: Yes Status: Acute Assessment and plan: Acute hypoxic respiratory failure secondary to acute COPD exacerbation due to acute bacterial bronchitis. Chest CTA negative for pulmonary embolism. Cont treating COPD/bronchitis as noted above. Will need pulmonary function tests in 6 weeks as outpatient. Wean supplemental O2 as able (4) Hyperglycemia Current Visit: Yes Status: Acute Assessment and plan: Hgb A1c 6.4%. Suspect secondary to steroids. Cont SSI (5) Hypothyroidism Current Visit: Yes Status: Acute Assessment and plan: per hx. Continue Synthroid Qualifiers: Hypothyroidism type: unspecified Qualified Code(s): E03.9 - Hypothyroidism , unspecified (6) DVT prophylaxis Current Visit: Yes Status: Acute Assessment and plan: heparin - Time Spent With Patient Total time spent is greater than 50% in coordination of care (as documented) at patient's floor/unit and/or counseling patient: - Subjective Interval history: Seen and examined at bedside. Still c/o SOB, says he feels a little better but does not feel he can go home today. No CP. Still has dry cough - Constitutional Vitals: Temp Pulse Resp BP Pulse Ox 97.5 F L 71 20 131/77 91 08/31/17 10:36 08/31/17 10:36 08/31/17 11:18 08/31/17 10:36 08/31/17 11:18 General appearance: Present: A&O X 3, pleasant, no acute distress - Head Head exam: Present: atraumatic, normocephalic - Eye Eye exam: Present: PERRL, conjuntiva pink, sclera anicteric Pupils: Present: PERRL - Neck Neck exam general surgery: Present: supple, trachea midline. Absent: lymphadenopathy - Respiratory Respiratory exam: Present: CTAB. Absent: accessory muscle use, rales, rhonchi, wheezes - Cardiovascular Cardiovascular exam: Present: RRR, +S1, +S2. Absent: diastolic murmur, gallop, rubs, systolic murmur - GI/Abdominal GI/Abdominal exam: Present: normal bowel sounds, soft, no peritoneal signs. Absent: distended, tenderness - Extremities Exam Extremities exam: Present: warm, radial pulses palpable and symmetrical. Absent : calf tenderness, cyanotic, pedal edema - Neurological Exam Neurological exam: Present: CN II-XII intact, oriented X3, no focal deficits. Absent: pronater drift, facial droop, speech deficit - Skin Skin exam: Present: dry, intact Internal Medicine: Result - Labs CBC & Chem 7: 08/31/17 05:54 08/31/17 05:54 Labs: Short CBC 08/31/17 Range/Units 05:54 WBC 14.6 H (4.3-11.1) K/mcL Hgb 13.1 (12.9-16.9) g/dL Hct 38.3 (37.5-50.1) % Plt Count 288 (140-400) K/mcL [facility] 08/31/17 05:54 Sodium 137 Potassium 4.8 Chloride 105 Carbon Dioxide 25 BUN 25 H Creatinine 1.05 Glucose 164 H Calcium 8.6 - ABG Interpretation ABG results: PT/INR, D-dimer PT 12.7 Seconds (9.4-12.1) H 08/28/17 13:04 - Impressions Impressions Echocardiogram 08/31/17 10:24 Impressions: LVEF 60-65%. Normal LV chamber size, wall thickness and function. Moderate left ventricular diastolic dysfunction. Normal right ventricular structure and function. No evidence of pulmonary hypertension. No significant valvular dysfunction. Left Ventricular Wall Motion: Rest Echo Findings All wall segments showed normal motion. Findings: Study Quality * Technically adequate exam. ECG Findings * Normal sinus rhythm. Left Ventricle * LVEF 60-65%. * Normal LV chamber size, wall thickness and function. * Moderate left ventricular diastolic dysfunction. Right Ventricle * Normal right ventricular structure and function. Left Atrium * Mildly dilated left atrium. Right Atrium * Normal right atrial size. Aortic Valve * Trileaflet aortic valve with normal function. * No aortic regurgitation. * No aortic stenosis. Mitral Valve * Normal mitral valve structure and function. * No mitral regurgitation. * No mitral stenosis. Tricuspid Valve * Normal tricuspid valve structure and function. * Trace tricuspid regurgitation. * No evidence of pulmonary hypertension. Pulmonic Valve * Normal pulmonic valve structure and function. * Trace pulmonic regurgitation. Aorta * Normally sized aortic root. Pericardium * The pericardium appears normal. IVC * Normal IVC dimensions and inspiratory collapse. Pulmonary Artery * Normal visualized portions of the main pulmonary artery. Consult Discharge Plan - Plan Referrals: Dylan Milligan MD [Partnered Physician] -
[2017-08-31] MEDS: Furosemide 40 MG/4 ML VIAL IVP SCH (16:36)
--- NOTE | 2017-08-31 20:04 | Pulmonology Consult Note ---
Date of Encounter: 08/31/17 Time of Encounter: 14:00 Assessment and Plan (1) Acute respiratory failure with hypoxia Current Visit: Yes Status: Acute Patient presenting with viral exacerbation of bronchitis patient had some reactive airway disease in PFT'S 2016 now the acute hypoxia resolved . Had exercise oximetry today which showed no exercise induced desaturation. (2) Bronchitis Current Visit: Yes Status: Acute Viral exacerbation of bronchitis patient has background of reactive airway disease patient will need outpatient evaluation of asthma . Will send him home on Albuterol nebulizer and Symbicort (3) Diaphragmatic paralysis Current Visit: Yes Status: Acute The restrictive ventilatory impairment caused by diaphragmatic paralysis on the right sided contributing chronic shortness of breadth . (4) Acute diastolic (congestive) heart failure Current Visit: Yes Status: Acute Patient has diastolic congestive heart failure can contribute to the current picture will try one dose of diuresis . Counseled about getting evaluated for sleep disordered breathing as outpatient which will help reduce the risk of progression of heart failure . 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 Now with ECHO showing diastolic dysfunction with dilated atrium denies any pedal edema , denies any orthopnea or PND , denies any GERD or Neuro symptoms. Past Med Surg Social Fam HX - Past Medical History Medical history: COPD, hyperlipidemia, other Additional medical history: paralysed diaphram Psychiatric history: no psych history - Past Surgical History Surgical History: no surgical history - Social History Smoking Status: Former smoker Packs per day: Quit smoking 10 years ago used to smoke 1 pack per day Smokeless Tobacco Status: No Alcohol use: none Drug use: none Medications and Allergies Atorvastatin Calcium [Lipitor] 20 mg PO DAILY 08/28/17 [History] Azelastine 0.1% Nasal [place] [Astelin] 1 spr NS DAILY 08/28/17 [History] Levothyroxine [Synthroid] 125 mcg PO DAILY 08/28/17 [History] 3 Allergy/AdvReac Type Severity Reaction Status Date / Time No Known Allergies Allergy Verified 08/28/17 10:24 All Systems: The remainder of the systems were reviewed and are negative Physical Examination Vital Signs: Vital Signs, Last 4 Hours Temp Pulse Resp BP Pulse Ox 08/31/17 18:53 98.0 F 85 19 130/65 93 08/31/17 16:32 97.5 F L 77 18 138/78 91 Auscultation: right: diminished breath sounds (basilar diminished breadth sounds ), bilateral: clear Results - Laboratory Findings CBC and BMP: 08/31/17 05:54 08/31/17 05:54 PT/INR, D-dimer PT 12.7 Seconds (9.4-12.1) H 08/28/17 13:04 Abnormal lab findings: Abnormal lab results WBC 14.6 K/mcL (4.3-11.1) H 08/31/17 05:54 RBC 4.16 M/mcL (4.19-5.50) L 08/31/17 05:54 MPV 9.2 fL (9.4-12.4) L 08/31/17 05:54 PT 12.7 Seconds (9.4-12.1) H 08/28/17 13:04 APTT 42.8 Seconds (26.0-36.0) H 08/28/17 13:04 BUN 25 mg/dL (8-23) H 08/31/17 05:54 Glucose 164 mg/dL (70-105) H 08/31/17 05:54 POC Glucose 224 mg/dL (70-99) H 08/31/17 16:20 Hemoglobin A1c 6.4 % (-5.6) H 08/29/17 05:12 Phosphorus 1.8 mg/dL (2.7-4.5) L 08/28/17 13:04 Ur Specific [place] > 1.030 (1.010-1.025) H 08/28/17 16:43 Urine Ketones 15 mg/dL (Negative) H 08/28/17 16:43 - Microbiology Findings Microbiology Findings: Microbiology, Last 48 Hours 08/30/17 15:49 Legionella Antigen - Final Urine,Clean Catch Streptococcus pneumoniae Antigen (M - Final - Clinical Findings Intake & Output: Intake & Output 08/31/17 08/31/17 08/31/17 07:59 15:59 23:59 Intake Total 250 / 250 Balance 250 / 250 Weight 102.3 kg Consult Discharge Plan - Plan Instructions: Heart Failure (DC) Referrals: Janis Stanford MD [Partnered Physician] - (Your appointment has been webrequested. Our offices will call you with an appointment time and date.) Dylan Milligan MD [Partnered Physician] -
[2017-09-01] MEDS: MethylPREDNISolone 40 MG/ML VIAL IVP SCH ×2 (01:15→09:47)
[2017-09-01] MEDS: Ipratropium/Albuterol Neb 3 ML IH SCH ×3 (03:48→11:52)
[2017-09-01 05:12] LABS: BUN/Creatinine Ratio 24 (6-26); Blood Urea Nitrogen 28 mg/dL (8-23); Calcium 8.8 mg/dL (8.6-10.3); Carbon Dioxide 26 mEq/L (23-29); Chloride 102 mEq/L (98-107); Glucose 175 mg/dL (70-105); Osmolality,Calculated 294 (280-300); Potassium 4.4 mEq/L (3.5-5.1); Sodium 137 mEq/L (136-145); eGFR For African Americans > 60 (> 60); eGFR For Non-African Americans > 60 (> 60)
[2017-09-01] MEDS: *HR* Heparin 5,000 UNIT/ML VIAL SQ SCH (05:53)
[2017-09-01 08:02] VITALS: BP 123/77
--- NOTE | 2017-09-01 09:13 | Pulmonology Progress Note ---
Date of Encounter: 09/01/17 Time of Encounter: 09:00 Assessment and Plan (1) Acute respiratory failure with hypoxia Current Visit: Yes Status: Acute Looks resolved , patient didnt desaturate on exercise . (2) Bronchitis Current Visit: Yes Status: Acute Viral exacerbation prior PFT showed some evidence of reactive airway disease patient might be developing adult onset asthma will do Methacholine challenge as an outpatient . To send him home on Albuetrol HFA and Symbicort . (3) Diaphragmatic paralysis Current Visit: Yes Status: Acute Chronic stable diaphragmatic paralysis (4) Acute diastolic (congestive) heart failure Current Visit: Yes Status: Acute Patient doesnt look fluid overloaded . Will need outpatient managment of hypertension looks like he has stage I HTN will need to get on PAP therapy . (5) SALVADOR (obstructive sleep apnea) Current Visit: Yes Status: Acute Patient supposed to be CPAP of 10 patient is motivated to get back on PAP therapy will need 6-8 weeks follow up with [facility] . Subjective Principal diagnosis: Viral Bronchitis Interval history: Patient is sitting in his chair no new complaints cough is dry which is lot better , denies any chest pain or tightness . Patient says he is almost back to baseline . Objective PUL Vital signs: Last Vital Signs Temp 97.7 F 09/01/17 07:00 Pulse 72 09/01/17 07:00 Resp 18 09/01/17 08:07 BP 123/77 09/01/17 07:00 Pulse Ox 90 09/01/17 08:07 Auscultation: bilateral: clear Results - Laboratory Findings CBC and BMP: 08/31/17 05:54 09/01/17 04:42 PT/INR, D-dimer PT 12.7 Seconds (9.4-12.1) H 08/28/17 13:04 Abnormal lab findings: Abnormal lab results WBC 14.6 K/mcL (4.3-11.1) H 08/31/17 05:54 RBC 4.16 M/mcL (4.19-5.50) L 08/31/17 05:54 MPV 9.2 fL (9.4-12.4) L 08/31/17 05:54 PT 12.7 Seconds (9.4-12.1) H 08/28/17 13:04 APTT 42.8 Seconds (26.0-36.0) H 08/28/17 13:04 BUN 28 mg/dL (8-23) H 09/01/17 04:42 Glucose 175 mg/dL (70-105) H 09/01/17 04:42 POC Glucose 196 mg/dL (70-99) H 08/31/17 20:46 Hemoglobin A1c 6.4 % (-5.6) H 08/29/17 05:12 Phosphorus 1.8 mg/dL (2.7-4.5) L 08/28/17 13:04 Ur Specific [place] > 1.030 (1.010-1.025) H 08/28/17 16:43 Urine Ketones 15 mg/dL (Negative) H 08/28/17 16:43 - Microbiology Findings Microbiology Findings: Microbiology, Last 48 Hours 08/30/17 15:49 Legionella Antigen - Final Urine,Clean Catch Streptococcus pneumoniae Antigen (M - Final - Clinical Findings Intake & Output: Intake & Output 08/31/17 09/01/17 09/01/17 23:59 07:59 15:59 Weight 101 kg Consult Discharge Plan - Plan Instructions: Albuterol (By breathing), Prednisone (By mouth), Azithromycin ( By mouth), Budesonide/Formoterol (By breathing), Heart Failure (DC), Asthma (GEN ), Sleep Apnea Syndrome (DC), Snoring (DC), Acute Bronchitis (DC), Chronic Obstructive Pulmonary Disease (DC) Referrals: Janis Stanford MD [Partnered Physician] - (Your appointment has been webrequested. Our offices will call you with an appointment time and date.) Dylan Milligan MD [Partnered Physician] - (Unable to make hospital follow up appointment due to office being close. please call sunday to schedule appointment. ) Prescriptions: Albuterol Sulfate [Albuterol Inhaler] 1 puff IH Q4HR PRN #1 hfa.[email or web address] PRN Reason: Shortness Of Breath/Wheezing Azithromycin [Azithromycin 6-Tab Pack] 250 mg PO PER PKG DI #6 tab Budesonide/Formoterol 160/4.5 [Symbicort 160/4.5] 1 puff IH BIDR #1 hfa.aer.ad predniSONE [PredniSONE] 40 mg PO DAILY 5 Days #10 tablet
[2017-09-01] MEDS: cefTRIAXone 1,000 MG in Water for inj. (sterile) 20 ML 10 ML IVP SCH (09:47)
[2017-09-01] MEDS: Furosemide 40 MG/4 ML VIAL IVP SCH (09:47)
[2017-09-01] MEDS: Insulin LISPRO 300 UNITS/3 ML VIAL SQ SCH (09:51)
--- NOTE | 2017-09-01 11:23 | Discharge Summary ---
- NOTES TO OUTPATIENT PROVIDER Notes to Outpatient Provider: Recommend further evaluation of sleep apnea Date of Encounter: 09/01/17 Time of Encounter: 11:24 - Discharge Diagnosis (1) Acute respiratory failure with hypoxia Priority: Primary Status: Acute Assessment and Plan: Acute hypoxic respiratory failure secondary to acute diastolic heart failure and rhonchi this. Chest CTA negative for pulmonary embolism. Symptoms improved with treating underlying heart failure and bronchitis as noted below. Adequately oxygenating on room air at time of discharge. (2) Bronchitis Priority: Primary Status: Acute Assessment and Plan: presented with SOB, fever and cough. Chest CTA with RLL atelectasis and chronic elevation of right hemidiaphragm. Suspect acute bronchitis with wheezing, subjective fevers and cough. Symptoms improved with IV steroids, azithromycin/ceftriaxone, bronchodilators. Resp PCR, urinary antigens negative. Z-Sean, steroid burst at discharge. Add albuterol and Symbicort inhaler per pulmonology recommendations (3) Acute diastolic (congestive) heart failure Priority: Primary Status: Acute Assessment and Plan: suspected. Presented with persistent shortness of breath and cough. TTE with EF 60%, moderate diastolic dysfunction and left atrial enlargement. Symptoms significantly improved with one-time dose IV Lasix. No need for further diuresis at this time. Will need outpatient evaluation for possible SALVADOR. Pulmonology followed. Will need to follow-up with pulmonology outpatient (4) Hyperglycemia Priority: Primary Status: Acute Assessment and Plan: Hgb A1c 6.4%. Suspect secondary to steroids. Recommend follow-up with PCP within one week (5) Hypothyroidism Priority: Secondary Status: Chronic Assessment and Plan: per hx. Continue Synthroid Qualifiers: Hypothyroidism type: unspecified Qualified Code(s): E03.9 - Hypothyroidism , unspecified Hospital course: Please see assessment and plan for Hospital course Discharge discussed with: patient (Seen and examined at bedside. Patient says he feels significantly improved elect to discharge home today on having minimal shortness of breath and coughing episodes have significantly decreased. No chest pain. Advised him he will need to follow-up with PCP for outpatient sleep study as well as pulmonology.) - Time Spent with Patient Total time spent providing and/or coordinating discharge services: - Discharge Medications Prescriptions: Albuterol Sulfate [Albuterol Inhaler] 1 puff IH Q4HR PRN #1 hfa.[email or web address] PRN Reason: Shortness Of Breath/Wheezing Azithromycin [Azithromycin 6-Tab Pack] 250 mg PO PER PKG DI #6 tab Budesonide/Formoterol 160/4.5 [Symbicort 160/4.5] 1 puff IH BIDR #1 hfa.aer.ad predniSONE [PredniSONE] 40 mg PO DAILY 5 Days #10 tablet Home Medications: Atorvastatin Calcium [Lipitor] 20 mg PO DAILY 08/28/17 [History] Azelastine 0.1% Nasal [place] [Astelin] 1 spr NS DAILY 08/28/17 [History] Levothyroxine [Synthroid] 125 mcg PO DAILY 08/28/17 [History] Albuterol Sulfate [Albuterol Inhaler] 1 puff IH Q4HR PRN #1 hfa.aer.ad 09/01/17 [Rx] Azithromycin [Azithromycin 6-Tab Pack] 250 mg PO PER PKG DI #6 tab 09/01/17 [Rx] Budesonide/Formoterol 160/4.5 [Symbicort 160/4.5] 1 puff IH BIDR #1 hfa.aer.ad 09/01/17 [Rx] predniSONE [PredniSONE] 40 mg PO DAILY 5 Days #10 tablet 09/01/17 [Rx] Allergies/Adverse Reactions: 3 Allergy/AdvReac Type Severity Reaction Status Date / Time No Known Allergies Allergy Verified 08/28/17 10:24 Date of admission: 08/30/17 12:54 Primary care physician: PCP NONE Consults: 08/31/17 09:30 Consult to Pulmonology [CONS] Routine Consulting Provider: [facility] Reason for Consult: cough, SOB Call Completed: Yes Discharging clinician: Nolvia Hay Anticipated date of discharge: 09/01/17 - Constitutional Vitals: Temp Pulse Resp BP Pulse Ox 97.7 F 72 18 123/77 90 09/01/17 07:00 09/01/17 07:00 09/01/17 08:07 09/01/17 07:00 09/01/17 08:07 General appearance: Present: A&O X 3, pleasant, no acute distress - Head Head exam: Present: atraumatic, normocephalic - Eye Eye exam: Present: PERRL, conjuntiva pink, sclera anicteric Pupils: Present: PERRL - Neck Neck exam general surgery: Present: supple, trachea midline. Absent: lymphadenopathy - Respiratory Respiratory exam: Present: CTAB. Absent: accessory muscle use, rales, rhonchi, wheezes - Cardiovascular Cardiovascular exam: Present: RRR, +S1, +S2. Absent: diastolic murmur, gallop, rubs, systolic murmur - GI/Abdominal GI/Abdominal exam: Present: normal bowel sounds, soft, no peritoneal signs. Absent: distended, tenderness - Extremities Exam Extremities exam: Present: warm, radial pulses palpable and symmetrical. Absent : calf tenderness, cyanotic, pedal edema - Neurological Exam Neurological exam: Present: CN II-XII intact, oriented X3, no focal deficits. Absent: pronater drift, facial droop, speech deficit - Skin Skin exam: Present: dry, intact - Patient Status Disposition: Home, Self-Care Condition: Good Overall status at discharge: patient is progressing back to baseline - Discharge Instructions Instructions: Heart Failure (DC), Asthma (GEN), Acute Bronchitis (DC), Sleep Apnea Syndrome (DC), Snoring (DC), Prednisone (By mouth), Azithromycin (By mouth ), Budesonide/Formoterol (By breathing), Albuterol (By breathing) Follow Up With: Janis Stanford MD [Partnered Physician] - (Your appointment has been webrequested. Our offices will call you with an appointment time and date.) Dylan Milligan MD [Partnered Physician] - (Unable to make hospital follow up appointment due to office being close. please call sunday to schedule appointment. ) - Diet and Activity Activity: increase activity as tolerated Diet: advance to your usual diet
== END 2017-09-01 12:55 | disposition home or self-care (01) | DRG 190 ==
LOC: 3BNU 10:18 → EMEROO 10:18 → 3BNU 17:41
PROVIDERS: ADMIT Family Medicine; ATTEND Family Medicine